=== PATIENT | male | born 1975 | race Caucasian/White ===

== ENCOUNTER 2021-05-23 13:25 | Inpatient (IN) | payer SELFPAY ==
[2021-05-23 14:04] LABS: Urine Blood 2+ (Negative); Urine Glucose Negative (Negative); Urine Protein 2+ (Negative); Urine Specific Gravity >=1.030 (1.005-1.030); Urine pH 5.5 (5.0-7.0)
[2021-05-23] MEDS ORDERED: NA CHLORIDE 0.9% 1,000 ML ONE (14:27)
[2021-05-23] MEDS ORDERED: CEFTRIAXONE 1000 MG/VIAL ONE (14:27)
[2021-05-23 14:51] LABS: Absolute Lymphocytes (CBC) 2.4 K/uL (0.7-4.9); Basophils % 0.5 % (0-1.3); Hematocrit 46.6 % (39.6-49.0); Lymphocytes % 27.8 % (15.3-44.8); MPV 7.8 fL (7.6-11.3); RBC Red Blood Cell Count 4.83 M/uL (4.33-5.43)
[2021-05-23 14:52] LABS: ALT/SGPT 80 U/L (12-78); AST/SGOT 34 U/L (15-37); Albumin 4.4 g/dL (3.4-5.0); Alkaline Phosphatase 62 U/L (45-117); BUN Blood Urea Nitrogen 14 mg/dL (7-18); Bicarbonate 23 mmol/L (21-32); Bilirubin Direct 0.2 mg/dL (0-0.2); Bilirubin Total 0.7 mg/dL (0.2-1.0); Glucose Level 92 mg/dL (74-106); Lipase 116 U/L (73-393); Magnesium 2.1 mg/dL (1.8-2.4); Sodium Level 140 mmol/L (136-145); Troponin (Emerg Dept Use Only) < 0.02 ng/mL (0.0-0.045)
[2021-05-23] MEDS ORDERED: MORPHINE 4 MG/ML SYR ONE ×2 (14:58→15:29)
[2021-05-23] MEDS ORDERED: ONDANSETRON 4 MG/2 ML VIAL ONE ×2 (14:58→16:31)
[2021-05-23 15:02] LABS: Protime INR 1.03
--- NOTE | 2021-05-23 15:02 | RAD REPORT ---
EXAM DESCRIPTION: RAD - Chest Single View - 05/23/2021 2:33 pm CLINICAL HISTORY: COUGH Chest pain. COMPARISON: No comparisons FINDINGS: Portable technique limits examination quality. The lungs are grossly clear. The heart is normal in size. No displaced fractures. IMPRESSION: No acute intrathoracic process suspected.
[2021-05-23 15:07] LABS: NT PRO-BNP < 5 pg/mL (<125)
--- NOTE | 2021-05-23 15:49 | RAD REPORT ---
EXAM DESCRIPTION: CT - Angio Aorta For Dissection - 05/23/2021 3:23 pm CLINICAL HISTORY: Chest pain radiating to the back. Chest pain;Dyspnea;PE;Dissection COMPARISON: No comparisons TECHNIQUE: CT angiography of the aorta was performed with MIPs. All CT scans are performed using dose optimization technique as appropriate and may include automated exposure control or mA/KV adjustment according to patient size. FINDINGS: A left aortic arch is present with normal branching pattern of the great vessels.No acute aortic finding is seen such as aneurysm, penetrating ulcer or dissection. The celiac axis, SMA, SINA and renal arteries are patent. No evidence of pulmonary embolism. The lungs are clear. The liver demonstrates no focal mass or biliary dilatation.The spleen, pancreas, adrenal glands and k idneys are within normal limits for arterial phase imaging.Cholecystectomy. No bowel obstruction, free fluid or abscess.Appendectomy. There is mild thickening of the colon seen particularly the rectosigmoid colon which may indicate colitis.No pathologic enlarged lymphadenopathy identified. Urinary bladder wall appears thickened with enhancement suggesting cystitis. No fracture or worrisome bone lesion seen. Small bilateral fat containing inguinal hernias. IMPRESSION: No acute aortic finding is demonstrated. Enhancement of the urinary bladder wall likely related to cystitis. Mild colitis pattern is possible particularly in the rectosigmoid colon.
--- NOTE | 2021-05-23 16:18 | ER ---
Nurse's Notes [facility] Name: Orlando Cevallos Age: 45 yrs Sex: Male : 1975 Arrival Date: 05/23/2021 Time: 13:26 Bed 14 Private MD: Diagnosis: Left sided colitis without complications;Acute cystitis;Acute cystitis with hematuria;Chest pain, unspecified;Chest pain on breathing;Retention of urine, unspecified-PVR 364 CC Presentation: 05/23 13:37 Chief complaint: Patient states: Passed kidney stone 2 days ago and reports burning jl7 with urination, urine is cloudy and foul odor, currently taking cephalexin for a week. Also reports chest tightness, radiates to the back since this morning, reports pain is worse with moving. Coronavirus screen: At this time, the client does not indicate any symptoms associated with coronavirus-19. Ebola Screen: No symptoms or risks identified at this time. Initial Sepsis Screen: Does the patient meet any 2 criteria? No. Patient's initial sepsis screen is negative. Does the patient have a suspected source of infection? No. Patient's initial sepsis screen is negative. Risk Assessment: Do you want to hurt yourself or someone else? Patient reports no desire to harm self or others. Onset of symptoms was May 21, 2021. 13:37 Method Of Arrival: Ambulatory [facility] 13:37 Acuity: STELLA 2 jl7 05/24 01:14 Note Called lab for results of Covid test. Lab stated hey did receive sample. Charge df1 nurse notified. Pt states he is not willing to test again. 01:16 Note Admitting provider and charge nurse in to speak with pt. Pt states he will leave df1 to avoid second covid test. Charge nurse stated pt can stay in ER and receive treatment. Admitting provider approved. Triage Assessment: 05/23 13:40 General: Appears in no apparent distress. uncomfortable, Behavior is calm, cooperative, jl7 appropriate for age. Pain: Complains of pain in chest Pain radiates to back Pain currently is 5 out of 10 on a pain scale. Pain began. Cardiovascular: Patient's skin is warm and dry. Historical: - Allergies: 13:40 Levaquin; jl7 - Home Meds: 13:40 aspirin 81 mg Oral tab [Active]; jl7 - PMHx: 13:40 None; jl7 - PSHx: 13:40 Appendectomy; Cholecystectomy; jl7 - Immunization history:: Adult Immunizations not up to date, Client reports having NOT received the Covid vaccine. - Social history:: Smoking status: Patient denies any tobacco usage or history of. - Family history:: not pertinent. Screenin:29 Abuse screen: Denies threats or abuse. Denies injuries from another. Nutritional es2 screening: No deficits noted. Tuberculosis screening: No symptoms or risk factors identified. Fall Risk Gait- Normal/Bed Rest/Wheelchair (0 pts). Assessment: 14:27 Reassessment: Patient and/or family updated on plan of care and expected duration. Pain es2 level reassessed. Patient is alert, oriented x 3, equal unlabored respirations, skin warm/dry/pink. General: Appears uncomfortable, well developed, well nourished, Behavior is calm, cooperative, appropriate for age. Pain: Complains of pain in chest Pain currently is 6 out of 10 on a pain scale. Pain: Complains of pain in chest that radiates to back. Pain. Neuro: Level of Consciousness is awake, alert, obeys commands, Oriented to person, place, time, situation, Appropriate for age Speech is normal. Cardiovascular: Capillary refill < 3 seconds Patient's skin is warm and dry. Respiratory: Airway is patent Respiratory effort is even, Respiratory pattern is regular. GI: No signs and/or symptoms were reported involving the gastrointestinal system. : Reports pain with urination. EENT: No signs and/or symptoms were reported regarding the EENT system. Derm: No signs and/or symptoms reported regarding the dermatologic system. Musculoskeletal: No signs and/or symptoms reported regarding the musculoskeletal system. 05/24 01:30 Reassessment: long discussion with pt about his Covid swab and the need to have one bb prior to admission pt refused Covid swab after the first one was misplaced. Pt agrees to complete treatment in the ED. Vital Signs: 05/23 13:37 BP 153 / 94; Pulse 88; Resp 17; Temp 98.7; Pulse Ox 98% on R/A; Weight 90.72 kg; Height jl7 5 ft. 10 in. (177.80 cm); Pain 6/10; 14:29 BP 124 / 88; Pulse 90; Resp 19; Pulse Ox 97% on R/A; es2 19:30 BP 130 / 78; Pulse 86; Resp 18; Pulse Ox 99% on R/A; Pain 0/10; df1 23:10 BP 132 / 80; Pulse 80; Resp 18; Pulse Ox 99% on R/A; df1 13:37 Body Mass Index 28.70 (90.72 kg, 177.80 cm) jl7 ED Course: 13:26 Patient arrived in ED. as 13:40 Triage completed. jl7 13:40 Arm band placed on right wrist. jl7 13:44 Chacha Briseno, KATYA is Primary Nurse. es2 13:46 Samy Mukherjee MD is Attending Physician. shena 14:18 Inserted saline lock: 20 gauge in right antecubital area, using aseptic technique. ld1 Blood collected. 14:29 Patient has correct armband on for positive identification. Call light in reach. es2 14:30 No provider procedures requiring assistance completed. Patient maintains SpO2 es2 saturation greater than 95% on room air. 14:31 manager monitoring on. Pulse ox on. NIBP on. es2 14:33 XRAY Chest (1 view) In Process Unspecified. EDMS 15:23 CT Aorta for Dissection In Process Unspecified. EDMS 15:36 Basic Metabolic Panel Sent. es2 16:15 Frankie Guthrie MD is Hospitalizing Provider. [facility] 22:48 COVID-19 : Document "Date of Symptom Onset" if Symptomatic. Sent. df1 Administered Medications: 14:17 Drug: Rocephin (cefTRIAXone) 1 grams Route: IV; Rate: per protocol; Site: right ld1 antecubital; 14:18 Drug: NS 0.9% 1000 ml Route: IV; Rate: 1 bolus; Site: right antecubital; ld1 14:43 Drug: morphine 4 mg Route: IVP; Site: right antecubital; es2 15:36 Follow up: Response: No adverse reaction es2 14:43 Drug: Zofran (Ondansetron) 4 mg Route: IVP; Site: right antecubital; es2 15:36 Follow up: Response: No adverse reaction es2 15:07 Drug: morphine 4 mg {Note: 1.} Route: IVP; Site: right antecubital; es2 15:36 Follow up: Response: No adverse reaction es2 16:22 Drug: Dilaudid (HYDROmorphone) 1 mg {Note: Rass 1.} Route: IVP; Site: right antecubital;es2 16:22 Drug: Zofran (Ondansetron) 4 mg Route: IVP; Site: right antecubital; es2 16:47 Drug: Aspirin Chewable Tablet 162 mg Route: PO; ap3 16:48 Drug: Flagyl (metroNIDAZOLE) 500 mg Volume: 100 ml; Route: IVPB; Rate: 200 ml/hr; ap3 Infused Over: 30 mins; Site: right antecubital; 16:48 Drug: Flomax (tamsulosin) 0.4 mg Route: PO; ap3 17:53 Drug: Meropenem 1 grams Route: IV; Rate: per protocol; Site: right antecubital; es2 Outcome: 16:17 Decision to Hospitalize by Provider. shena 05/25 11:01 Patient left the ED. tc5 Signatures: Dispatcher [employer] EDMS Samy Mukherjee MD MD cha Martinez, Amelia as Ballard, Brenda, RN RN bb Prasanna Morales RN RN jl7 Maria Guadalupe Vargas RN RN [id number] Nasreen Barber RN RN ld1 Ramon Rush RN RN ch5 Snow Jacques df1 Chacha Briseno RN RN es2 Fabiola May RN RN tc5 Corrections: (The following items were deleted from the chart) 05/24 10:41 10:34 BP 132 / 77; Pulse 73bpm; Resp 17bpm; Pulse Ox 98% RA; Pain 0/10; ch5 ch5
--- NOTE | 2021-05-23 16:18 | EDPHYS ---
Physician Documentation [facility] Name: Orlando Cevallos Age: 45 yrs Sex: Male : 1975 Arrival Date: 05/23/2021 Time: 13:26 Bed 14 Private MD: ED Physician Samy Mukherjee HPI: 05/23 14:29 This 45 yrs old Male presents to ER via Ambulatory with complaints of Urinary [facility] Problem - blood/retention, Chest Pain, Shortness Of Breath, Possible Kidney Stone. 14:29 The patient or guardian reports chest pain that is located primarily in the anterior [facility] chest wall, bilaterally. Onset: 2 day(s) ago. The pain radiates to back. Associated signs and symptoms: Pertinent positives: shortness of breath. The chest pain is described as aching, a pressure. Duration: The patient or guardian reports multiple episodes, that wax and wane. Modifying factors: The symptoms are alleviated by remaining still, the symptoms are aggravated by breathing, movement. Severity of pain: At its worst the pain was mild in the emergency department the pain is unchanged. The patient has not experienced similar symptoms in the past. Historical: - Allergies: 13:40 Levaquin; jl7 - Home Meds: 13:40 aspirin 81 mg Oral tab [Active]; jl7 - PMHx: 13:40 None; jl7 - PSHx: 13:40 Appendectomy; Cholecystectomy; jl7 - Immunization history:: Adult Immunizations not up to date, Client reports having NOT received the Covid vaccine. - Social history:: Smoking status: Patient denies any tobacco usage or history of. - Family history:: not pertinent. ROS: 14:29 Constitutional: Negative for fever, chills, and weight loss, Eyes: Negative for injury, shena pain, redness, and discharge, ENT: Negative for injury, pain, and discharge, Neck: Negative for injury, pain, and swelling, Respiratory: Negative for shortness of breath, cough, wheezing, and pleuritic chest pain, Abdomen/GI: Negative for abdominal pain, nausea, vomiting, diarrhea, and constipation, : Negative for injury, bleeding, discharge, and swelling, MS/Extremity: Negative for injury and deformity, Skin: Negative for injury, rash, and discoloration, Neuro: Negative for headache, weakness, numbness, tingling, and seizure, Psych: Negative for depression, anxiety, suicide ideation, homicidal ideation, and hallucinations, Allergy/Immunology: Negative for hives, rash, and allergies, Endocrine: Negative for neck swelling, polydipsia, polyuria, polyphagia, and marked weight changes, Hematologic/Lymphatic: Negative for swollen nodes, abnormal bleeding, and unusual bruising. 14:29 Cardiovascular: Positive for chest pain. 14:29 Back: Positive for flank pain, bilaterally. Exam: 14:29 Constitutional: This is a well developed, well nourished patient who is awake, alert, shena and in no acute distress. Head/Face: Normocephalic, atraumatic. Eyes: Pupils equal round and reactive to light, extra-ocular motions intact. Lids and lashes normal. Conjunctiva and sclera are non-icteric and not injected. Cornea within normal limits. Periorbital areas with no swelling, redness, or edema. ENT: Nares patent. No nasal discharge, no septal abnormalities noted. Tympanic membranes are normal and external auditory canals are clear. Oropharynx with no redness, swelling, or masses, exudates, or evidence of obstruction, uvula midline. Mucous membranes moist. Neck: Trachea midline, no thyromegaly or masses palpated, and no cervical lymphadenopathy. Supple, full range of motion without nuchal rigidity, or vertebral point tenderness. No Meningismus. Chest/axilla: Normal chest wall appearance and motion. Nontender with no deformity. No lesions are appreciated. Cardiovascular: Regular rate and rhythm with a normal S1 and S2. No gallops, murmurs, or rubs. Normal PMI, no JVD. No pulse deficits. Respiratory: Lungs have equal breath sounds bilaterally, clear to auscultation and percussion. No rales, rhonchi or wheezes noted. No increased work of breathing, no retractions or nasal flaring. Back: No spinal tenderness. No costovertebral tenderness. Full range of motion. Male : Normal genitalia with no discharge or lesions. Skin: Warm, dry with normal turgor. Normal color with no rashes, no lesions, and no evidence of cellulitis. MS/ Extremity: Pulses equal, no cyanosis. Neurovascular intact. Full, normal range of motion. Neuro: Awake and alert, GCS 15, oriented to person, place, time, and situation. Cranial nerves II-XII grossly intact. Motor strength 5/5 in all extremities. Sensory grossly intact. Cerebellar exam normal. Normal gait. Psych: Awake, alert, with orientation to person, place and time. Behavior, mood, and affect are within normal limits. 14:29 ECG was reviewed by the Attending Physician. 14:29 Abdomen/GI: Inspection: abdomen appears normal, Bowel sounds: normal, Palpation: mild abdominal tenderness, in the right lower quadrant and left lower quadrant, Liver: no appreciated palpable abnormalities, Hernia: not appreciated. Vital Signs: 13:37 BP 153 / 94; Pulse 88; Resp 17; Temp 98.7; Pulse Ox 98% on R/A; Weight 90.72 kg; Height jl7 5 ft. 10 in. (177.80 cm); Pain 6/10; 14:29 BP 124 / 88; Pulse 90; Resp 19; Pulse Ox 97% on R/A; es2 19:30 BP 130 / 78; Pulse 86; Resp 18; Pulse Ox 99% on R/A; Pain 0/10; df1 23:10 BP 132 / 80; Pulse 80; Resp 18; Pulse Ox 99% on R/A; df1 13:37 Body Mass Index 28.70 (90.72 kg, 177.80 cm) jl7 MDM: 13:47 Patient medically screened. shena 14:33 Differential diagnosis: abnormal EKG, acute myocardial infarction, acute pericarditis, shena anxiety, chest wall pain, esophagitis, pulmonary embolus, stable angina, unstable angina. HEART Score: History: Slightly Suspicious (0), ECG: Normal (0), Age: > 45 and < 65 years (1), Risk Factors: No Risk Factors Known (0), Troponin: < or = 1 x Normal Limit (0), Total Score = 1. The patient was given aspirin in the Emergency Department. The patient's deep vein thrombosis risk score was calculated as follows: Total Score: 0. This patient was found to be at low risk for a deep vein thrombosis by using the Well's assessment criteria. The patient's pulmonary embolism risk score was calculated as follows: Total Score: 0-2 points. This patient was found to be at low risk for a pulmonary embolism by using the Well's assessment criteria. DERECK Risk Score: TOTAL SCORE = 0. Data reviewed: vital signs, nurses notes, lab test result(s), EKG, radiologic studies, CT scan, plain films. Data interpreted: court recording monitor: rate is 90 beats/min, rhythm is regular, Pulse oximetry: on room air is 97 %. Test interpretation: by ED physician or midlevel provider: ECG, plain radiologic studies. Counseling: I had a detailed discussion with the patient and/or guardian regarding: the historical points, exam findings, and any diagnostic results supporting the discharge/admit diagnosis, the presence of at least one elevated blood pressure reading (>120/80) during this emergency department visit, lab results, radiology results. 05/23 13:51 Order name: Basic Metabolic Panel [facility] 05/23 13:51 Order name: CBC with Diff; Complete Time: 15: [facility] 05/23 13:51 Order name: LFT's; Complete Time: 15: [facility] 05/23 13:51 Order name: Magnesium; Complete Time: 15:09 [facility] 05/23 13:51 Order name: NT PRO-BNP; Complete Time: 15:09 [facility] 05/23 13:51 Order name: PT-INR; Complete Time: 15:09 [facility] 05/23 13:51 Order name: Troponin (emerg Dept Use Only); Complete Time: 15:09 [facility] 05/23 13:51 Order name: Lipase; Complete Time: 15:09 [facility] 05/23 13:51 Order name: Urine Culture [facility] 05/23 13:51 Order name: Basic Metabolic Panel; Complete Time: 15:09 [facility] 05/23 14:03 Order name: Urine Dipstick-Ancillary; Complete Time: 14:26 [facility] 05/23 21:34 Order name: COVID-19 : Document "Date of Symptom Onset" if Symptomatic. wg 05/24 06:25 Order name: CBC with Automated Diff [facility] 05/24 06:44 Order name: Comprehensive Metabolic Panel [facility] 05/23 13:51 Order name: XRAY Chest (1 view); Complete Time: 15:09 [facility] 05/23 14:26 Order name: CT Aorta for Dissection; Complete Time: 16:09 shena 05/24 06:44 Order name: Phosphorus [facility] 05/24 06:44 Order name: Lipid Profile [facility] 05/24 06:44 Order name: T4 Free [facility] 05/24 06:44 Order name: Magnesium [facility] 05/24 06:44 Order name: Thyroid Stimulating Hormone [facility] 05/25 05:17 Order name: CBC with Automated Diff [facility] 05/25 05:39 Order name: Comprehensive Metabolic Panel [facility] 05/25 05:39 Order name: Magnesium [facility] 05/25 06:34 Order name: Phosphorus [facility] 05/23 13:51 Order name: EKG; Complete Time: 13:51 [facility] 05/23 13:51 Order name: Cardiac monitoring; Complete Time: 14:23 [facility] 05/23 13:51 Order name: EKG - Nurse/Tech; Complete Time: 14:18 [facility] 05/23 13:51 Order name: IV Saline Lock; Complete Time: 14:18 [facility] 05/23 13:51 Order name: Labs collected and sent; Complete Time: 14:18 [facility] 05/23 13:51 Order name: O2 Per Protocol; Complete Time: 14:05 [facility] 05/23 13:51 Order name: O2 Sat Monitoring; Complete Time: 14:05 [facility] 05/23 13:51 Order name: Urine Dipstick-Ancillary (obtain specimen); Complete Time: 14:05 [facility] 05/23 16:15 Order name: Bladder Scanner: pvr please; Complete Time: 17:37 [facility] EC:29 Rate is 109 beats/min. QRS [place] is Normal. AL interval is normal. QRS interval is shena normal. QT interval is normal. No Q waves. T waves are Normal. No ST changes noted. Clinical impression: NSR w/ Non-specific ST/T Changes and No evidence of ischemia. Interpreted by me. Reviewed by me. Administered Medications: 14:17 Drug: Rocephin (cefTRIAXone) 1 grams Route: IV; Rate: per protocol; Site: right ld1 antecubital; 14:18 Drug: NS 0.9% 1000 ml Route: IV; Rate: 1 bolus; Site: right antecubital; ld1 14:43 Drug: morphine 4 mg Route: IVP; Site: right antecubital; es2 15:36 Follow up: Response: No adverse reaction es2 14:43 Drug: Zofran (Ondansetron) 4 mg Route: IVP; Site: right antecubital; es2 15:36 Follow up: Response: No adverse reaction es2 15:07 Drug: morphine 4 mg {Note: 1.} Route: IVP; Site: right antecubital; es2 15:36 Follow up: Response: No adverse reaction es2 16:22 Drug: Dilaudid (HYDROmorphone) 1 mg {Note: Rass 1.} Route: IVP; Site: right antecubital;es2 16:22 Drug: Zofran (Ondansetron) 4 mg Route: IVP; Site: right antecubital; es2 16:47 Drug: Aspirin Chewable Tablet 162 mg Route: PO; ap3 16:48 Drug: Flagyl (metroNIDAZOLE) 500 mg Volume: 100 ml; Route: IVPB; Rate: 200 ml/hr; ap3 Infused Over: 30 mins; Site: right antecubital; 16:48 Drug: Flomax (tamsulosin) 0.4 mg Route: PO; ap3 17:53 Drug: Meropenem 1 grams Route: IV; Rate: per protocol; Site: right antecubital; es2 Disposition Summary: 05/23/21 16:17 Hospitalization Ordered Hospitalization Status: Inpatient Admission shena Provider: Frankie Guthrie cha Condition: Fair shena Problem: new shena Symptoms: have improved shena Bed/Room Type: Standard [facility] Location: [facility] ER HOLD(05/24/21 01:55) bb Room Assignment: ERHOLD-(05/24/21 01:55) bb Diagnosis - Left sided colitis without complications shena - Acute cystitis shena - Acute cystitis with hematuria shena - Chest pain, unspecified shena - Chest pain on breathing shena - Retention of urine, unspecified - PVR 364 CC shena Forms: - Medication Reconciliation Form shena - SBAR form shena Signatures: Dispatcher [employer] [facility] Samy Mukherjee MD MD cha Ballard, Brenda RN RN Prasanna Soriano RN RN [email or web address] Maria Guadalupe Vargas RN RN ap3 Nasreen Barber RN RN [email or web address] Chacha Briseno RN RN es2 Corrections: (The following items were deleted from the chart) 14:34 13:51 Angio Aorta For Dissection+CT.RAD.BRZ ordered. [facility] 05/24 01:55 05/23 16:17 Telemetry/MedSurg (Inpatient) shena bernal 05/24 01:55 05/23 16:17 shena bb
[2021-05-23] MEDS ORDERED: HYDROMORPHONE HCL 1 MG/ML INJ ONE (16:31)
[2021-05-23] MEDS ORDERED: Meropenem 1000 MG/VIAL IV ONE (16:54)
[2021-05-23] MEDS ORDERED: NA CHLORIDE 0.9% 100 ML ONE (16:54)
[2021-05-23] MEDS ORDERED: TAMSULOSIN 0.4 MG SR CAP ONE (16:54)
[2021-05-23] MEDS ORDERED: ASPIRIN EC 81 MG TAB PO ONE (16:54)
[2021-05-23] MEDS ORDERED: METRONIDAZOLE 500mg IVPB 500 MG/100 ML BAG IV ONE (16:55)
--- NOTE | 2021-05-23 19:50 | P.HP ---
Certification for Inpatient Patient admitted to: Observation With expected LOS: <2 Midnights Patient will require the following post-hospital care: None Practitioner: I am a practitioner with admitting privileges, knowledge of patient current condition, hospital course, and medical plan of care. Services: Services provided to patient in accordance with Admission requirements found in Title 42 Section 412.3 of the Code of Federal Regulations <Raman Amos Ghulam - Last Filed: 05/23/21 19:42> Patient History Date of Service: 05/23/21 Reason for admission: cystitis, colitis History of Present Illness: Mr. Cevallos is a 45 yo M who presents with worsening flank pain and urinary retention. In October, he passed a kidney stone and was also diagnosed with a UTI that he was treated for at that time. It returned, so he followed up with and was cleared by urology. He has continued to have dysuria, urgency, hematuria, bloating, and flank pain. He denies fever, frequency. For the past four days, he has been in constant pain. He is scheduled to see Dr. Stewart tomorrow but was told to go to the ED if symptoms worsened. This morning he was unable to urinate. Upon arrival, he had 900cc on bladder scan. After flomax and pain medication, he was able to urinate. He reports no issues with constipation, but has been having looser stools. He drinks 2-3 44oz bottles of gatorade per day. CT Dissection IMPRESSION: No acute aortic finding is demonstrated. Enhancement of the urinary bladder wall likely related to cystitis. Mild colitis pattern is possible particularly in the rectosigmoid colon. - Past Medical/Surgical History Past Medical History: Patient denies medical history -: appy -: saba - Family History Family History: Reviewed- Non-Contributory - Social History Smoking Status: Never smoker Alcohol use: Yes CD- Drugs: No Caffeine use: Yes Place of Residence: Home <Raman Amos - Last Filed: 05/23/21 19:42> Date of Service: 05/23/21 <Frankie Guthrie - Last Filed: 05/24/21 07:08> Review of Systems 10-point ROS is otherwise unremarkable Gastrointestinal: Abdominal Pain, Diarrhea Genitourinary: Dysuria, Urgency, Hematuria, Retention <Raman Amos - Last Filed: 05/23/21 19:42> Physical Examination - Physical Exam General: Alert, In no apparent distress HEENT: Atraumatic, PERRLA, Mucous membr. moist/pink, EOMI, Sclerae nonicteric Neck: Supple, 2+ carotid pulse no bruit, No LAD, Without JVD or thyroid abnormality Respiratory: Clear to auscultation bilaterally, Normal air movement Cardiovascular: Regular rate/rhythm, Normal S1 S2 Gastrointestinal: Normal bowel sounds, No tenderness Musculoskeletal: No tenderness Integumentary: No rashes Neurological: Normal gait, Normal speech, Normal strength at 5/5 x4 extr, Normal tone, Normal affect Lymphatics: No axilla or inguinal lymphadenopathy - Studies Laboratory Data (last 24 hrs) 05/23/21 14:16: PT 11.8, INR 1.03 05/23/21 14:16: WBC 8.60, Hgb 16.1, Hct 46.6, Plt Count 256 05/23/21 14:16: Sodium 140, Potassium 4.0, BUN 14, Creatinine 1.00, Glucose 92, Magnesium 2.1, Total Bilirubin 0.7, AST 34, ALT 80 H, Alkaline Phosphatase 62, Lipase 116 <Raman Amos - Last Filed: 05/23/21 19:42> - Studies Laboratory Data (last 24 hrs) 05/23/21 14:16: PT 11.8, INR 1.03 05/23/21 14:16: WBC 8.60, Hgb 16.1, Hct 46.6, Plt Count 256 05/23/21 14:16: Sodium 140, Potassium 4.0, BUN 14, Creatinine 1.00, Glucose 92, Magnesium 2.1, Total Bilirubin 0.7, AST 34, ALT 80 H, Alkaline Phosphatase 62, Lipase 116 <Frankie Guthrie - Last Filed: 05/24/21 07:08> Assessment and Plan - Problems (Diagnosis) (1) Colitis Current Visit: Yes Status: Acute (2) Cystitis Current Visit: Yes Status: Acute - Plan continue IV antibiotics continue antiemetics and pain management continue flomax urine culture and blood cultures pending DVT ppx Discharge Plan: Home Plan to discharge in: 24 Hours - Advance Directives Does patient have a Living Will: No Does patient have a Durable POA for Healthcare: No - Code Status/Comfort Care Code Status Assessed: Yes (full code ) Critical Care: No Time Spent Managing Pts Care (In Minutes): 70 <Raman Amos - Last Filed: 05/23/21 19:42> Date of Service: 05/23/21 Subjective: Agree with plan of care as mentioned above. Patient is clinically doing well. Continue with Flomax and antibiotic therapy. Vitals: Reviewed Physical exam: Awake and alert Cardiovascular: Regular rate and rhythm Lungs: Clear bilaterally Abdomen: Soft, nontender and nondistended Neuro: No focal deficits Assessment: 1. Urinary retention 2. WINDY 3. Cystitis 4. Colitis Plan: 1. Continue with IV hydration 2. Continue with IV antibiotics 3. Continue with pain control 4. Soft diet 5. Outpatient Urology follow-up 6. Monitor labs closely 7. GI and DVT prophylaxis <Frankie Guthrie - Last Filed: 05/24/21 07:08>
--- NOTE | 2021-05-24 01:01 | P.DS ---
Admission Date: 05/23/21 Discharge Date: 05/24/21 Reason for Admission: cystitis, colitis - Problems (1) Colitis Current Visit: Yes Status: Acute (2) Cystitis Current Visit: Yes Status: Acute Brief History of Present Illness: Mr. Cevallos is a 45 yo M who presents with worsening flank pain and urinary retention. In October, he passed a kidney stone and was also diagnosed with a UTI that he was treated for at that time. It returned, so he followed up with and was cleared by urology. He has continued to have dysuria, urgency, hematuria, bloating, and flank pain. He denies fever, frequency. For the past four days, he has been in constant pain. He is scheduled to see Dr. Stewart tomorrow but was told to go to the ED if symptoms worsened. This morning he was unable to urinate. Upon arrival, he had 900cc on bladder scan. After flomax and pain medication, he was able to urinate. He reports no issues with constipation, but has been having looser stools. He drinks 2-3 44oz bottles of gatorade per day. CT Dissection IMPRESSION: No acute aortic finding is demonstrated. Enhancement of the urinary bladder wall likely related to cystitis. Mild colitis pattern is possible particularly in the rectosigmoid colon. Hospital Course: Mr. Cevallos received flomax and IV antibiotics in the ED. He is able to void without pain. He has a followup appointment scheduled with Dr. Stewart tomorrow at 8AM. He will continue to take oral antibiotics at home. Urine culture results will be available to urology. <Raman Amos - Last Filed: 05/24/21 00:58> Admission Date: 05/23/21 Discharge Date: 05/24/21 <Frankie Guthrie - Last Filed: 05/24/21 07:09> Disposition: ROUTINE DISCHARGE Discharge Condition: GOOD Laboratory Data at Discharge: WBC 8.60 K/uL (4.3-10.9) 05/23/21 14:16 Hgb 16.1 g/dL (13.6-17.9) 05/23/21 14:16 Hct 46.6 % (39.6-49.0) 05/23/21 14:16 Plt Count 256 K/uL (152-406) 05/23/21 14:16 PT 11.8 SECONDS (9.5-12.5) 05/23/21 14:16 INR 1.03 05/23/21 14:16 Sodium 140 mmol/L (136-145) 05/23/21 14:16 Potassium 4.0 mmol/L (3.5-5.1) 05/23/21 14:16 BUN 14 mg/dL (7-18) 05/23/21 14:16 Creatinine 1.00 mg/dL (0.55-1.3) 05/23/21 14:16 Glucose 92 mg/dL (74-106) 05/23/21 14:16 Magnesium 2.1 mg/dL (1.8-2.4) 05/23/21 14:16 Total Bilirubin 0.7 mg/dL (0.2-1.0) 05/23/21 14:16 AST 34 U/L (15-37) 05/23/21 14:16 ALT 80 U/L (12-78) H 05/23/21 14:16 Alkaline Phosphatase 62 U/L (45-117) 05/23/21 14:16 Lipase 116 U/L (73-393) 05/23/21 14:16 <Raman Amos S - Last Filed: 05/24/21 00:58> Vital Signs/Physical Exam: Temp Pulse Resp BP Pulse Ox 98.4 F 81 18 121/73 98 05/24/21 01:41 05/24/21 05:49 05/24/21 05:49 05/24/21 05:49 05/24/21 05:49 Laboratory Data at Discharge: WBC 6.70 K/uL (4.3-10.9) D 05/24/21 06:00 Hgb 13.8 g/dL (13.6-17.9) 05/24/21 06:00 Hct 39.7 % (39.6-49.0) 05/24/21 06:00 Plt Count 224 K/uL (152-406) 05/24/21 06:00 PT 11.8 SECONDS (9.5-12.5) 05/23/21 14:16 INR 1.03 05/23/21 14:16 Sodium 143 mmol/L (136-145) 05/24/21 06:00 Potassium 4.1 mmol/L (3.5-5.1) 05/24/21 06:00 BUN 13 mg/dL (7-18) 05/24/21 06:00 Creatinine 0.87 mg/dL (0.55-1.3) 05/24/21 06:00 Glucose 103 mg/dL (74-106) 05/24/21 06:00 Phosphorus 3.9 mg/dL (2.5-4.9) 05/24/21 06:00 Magnesium 2.3 mg/dL (1.8-2.4) 05/24/21 06:00 Total Bilirubin 0.4 mg/dL (0.2-1.0) 05/24/21 06:00 AST 29 U/L (15-37) 05/24/21 06:00 ALT 73 U/L (12-78) 05/24/21 06:00 Alkaline Phosphatase 58 U/L (45-117) 05/24/21 06:00 Triglycerides 91 mg/dL (<150) 05/24/21 06:00 Cholesterol 114 mg/dL (<200) 05/24/21 06:00 HDL Cholesterol 32 mg/dL (40-60) L 05/24/21 06:00 Cholesterol/HDL Ratio 3.56 05/24/21 06:00 Lipase 116 U/L (73-393) 05/23/21 14:16 <Frankie Guthrie - Last Filed: 05/24/21 07:09> Diet: Regular Activity: Ad diana <Raman Amos - Last Filed: 05/24/21 00:58> <Frankie Guthrie - Last Filed: 05/24/21 07:09> Physician Discharge Instructions: Follow up with urology tomorrow at 8AM continue to take oral antibiotics return to the ED if pain worsens or unable to void Followup: NONE,NONE [Primary Care Provider] - Juan Manuel Stewart [ACTIVE - CAN ADMIT] - Date of Service: 05/24/21 Chart is been reviewed. Agree with plan of care as mentioned above. Patient is stable for discharge. Outpatient follow with Urology and GI. <Frankie Guthrie - Last Filed: 05/24/21 07:09>
[2021-05-24] MEDS ORDERED: NITROGLYCERIN 0.4 MG/TAB SL PRN (01:21)
[2021-05-24] MEDS ORDERED: ATORVASTATIN 40 MG TAB PO SCH (01:21)
[2021-05-24] MEDS: METRONIDAZOLE 500mg IVPB 500 MG/100 ML BAG IV SCH ×3 (01:21→17:15)
[2021-05-24] MEDS ORDERED: ONDANSETRON 4 MG/2 ML VIAL IV PRN (01:21)
[2021-05-24] MEDS ORDERED: MORPHINE 2 MG/ML SYR IV PRN (01:21)
[2021-05-24] MEDS ORDERED: ACETAMINOPHEN 500 MG TAB PO PRN (01:21)
[2021-05-24] MEDS ORDERED: METRONIDAZOLE 500mg IVPB 500 MG/100 ML BAG IV ONE ×3 (01:54→18:04)
[2021-05-24] MEDS ORDERED: CEFEPIME 2 GM VIAL IV SCH ×2 (02:00→14:00)
[2021-05-24] MEDS ORDERED: CEFEPIME 1 GM/VIAL ONE ×3 (03:05→14:01)
[2021-05-24] MEDS ORDERED: D5W 100 ML IV ONE (03:12)
[2021-05-24] MEDS ORDERED: ATORVASTATIN 20 MG TAB ONE ×2 (04:36→20:34)
[2021-05-24 04:38] VITALS: BMI 27.1
[2021-05-24 06:19] LABS: Absolute Lymphocytes (CBC) 2.6 K/uL (0.7-4.9); Basophils % 0.7 % (0-1.3); Hematocrit 39.7 % (39.6-49.0); Lymphocytes % 38.2 % (15.3-44.8); MPV 7.5 fL (7.6-11.3); RBC Red Blood Cell Count 4.14 M/uL (4.33-5.43)
[2021-05-24 06:42] LABS: ALT/SGPT 73 U/L (12-78); AST/SGOT 29 U/L (15-37); Albumin 3.6 g/dL (3.4-5.0); Alkaline Phosphatase 58 U/L (45-117); BUN Blood Urea Nitrogen 13 mg/dL (7-18); Bicarbonate 28 mmol/L (21-32); Bilirubin Total 0.4 mg/dL (0.2-1.0); Glucose Level 103 mg/dL (74-106); HDL Cholesterol 32 mg/dL (40-60); LDL Cholesterol, Calculated 64 (<130); Magnesium 2.3 mg/dL (1.8-2.4); Phosphorus 3.9 mg/dL (2.5-4.9); Potassium 4.1 mmol/L (3.5-5.1); Protein, Total 6.6 g/dL (6.4-8.2); Sodium Level 143 mmol/L (136-145)
[2021-05-24] MEDS ORDERED: TAMSULOSIN 0.4 MG SR CAP ONE (08:21)
[2021-05-24] MEDS ORDERED: AMOX/K CLAV 875 MG TAB PO SCH (09:00)
[2021-05-24] MEDS ORDERED: INFLUENZA VACCINE (for 6+ mo) 0.5 ML DOSE IMVAC ONE (09:00)
[2021-05-24] MEDS: TAMSULOSIN 0.4 MG SR CAP PO SCH (09:50)
[2021-05-24] MEDS ORDERED: ACETAMINOPHEN 500 MG TAB ONE (12:35)
[2021-05-24] MEDS ORDERED: ONDANSETRON 4 MG/2 ML VIAL ONE (12:36)
[2021-05-24] MEDS ORDERED: MORPHINE 4 MG/ML SYR ONE (12:36)
[2021-05-24] MEDS: CEFEPIME 2 GM in NA CHLORIDE 0.9% 100 ML IV SCH (14:10)
--- NOTE | 2021-05-24 16:38 | P.PN ---
Subjective Date of Service: 05/24/21 Patient states that he has multi-drug resistant urinary tract infections. I reviewed the culture from the past and he has had Pseudomonas aeruginosa at x2. He most likely has a repeat UTI it from Pseudomonas. For a male to have repetitive infections as such a young age most likely there some anatomical is sues or related to nephrolithiasis. Will send stool off for cytology if he passes a stone. Review of Systems 10-point ROS is otherwise unremarkable Physical Examination - Vital Signs Temperature: 98.4 F Blood Pressure: 126/83 Pulse: 177 Respirations: 18 Pulse Ox (%): 98 - Physical Exam General: Alert, In no apparent distress, Oriented x3 Respiratory: Clear to auscultation bilaterally, Normal air movement Cardiovascular: Regular rate/rhythm, Normal S1 S2, No murmurs Gastrointestinal: Normal bowel sounds, Soft and benign, Non-distended, No rebound, No guarding, Other (Suprapubic tenderness), Tenderness Musculoskeletal: No clubbing, No swelling, No tenderness Neurological: Normal speech, Normal tone, Normal affect Lymphatics: No axilla or inguinal lymphadenopathy - Studies Medications List Reviewed: Yes Assessment & Plan - Problems (Diagnosis) (1) 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 Continue with IV hydration 2. Continue with IV antibiotics 3. Continue with pain control 4. Gentle hydration 5. Urology consultation; 6. Serial H&H, and we will monitor CBC, BMP, LFTs and lipase along with electrolytes. 7. GI and DVT prophylaxis Discharge Plan: Home Plan to discharge in: Greater than 2 days - Advance Directives Does patient have a Living Will: No Does patient have a Durable POA for Healthcare: No - Code Status/Comfort Care Code Status Assessed: Yes Code Status: Full Code Critical Care: No Time Spent Managing PTS Care (In Minutes): 40
[2021-05-25] MEDS: METRONIDAZOLE 500mg IVPB 500 MG/100 ML BAG IV SCH ×2 (00:35→09:00)
[2021-05-25] MEDS ORDERED: MELATONIN 5 MG TABLET PO PRN (00:39)
[2021-05-25] MEDS ORDERED: METRONIDAZOLE 500mg IVPB 500 MG/100 ML BAG IV ONE ×2 (00:54→08:05)
[2021-05-25] MEDS ORDERED: MELATONIN 5 MG TABLET PO ONE (01:16)
[2021-05-25] MEDS: CEFEPIME 2 GM in NA CHLORIDE 0.9% 100 ML IV SCH (01:49)
[2021-05-25] MEDS ORDERED: NA CHLORIDE 0.9% 100 ML ONE (02:00)
[2021-05-25] MEDS ORDERED: CEFEPIME 1 GM/VIAL ONE (02:00)
[2021-05-25 05:05] LABS: Absolute Lymphocytes (CBC) 2.8 K/uL (0.7-4.9); Basophils % 0.5 % (0-1.3); Hematocrit 40.9 % (39.6-49.0); Lymphocytes % 39.4 % (15.3-44.8); MPV 7.3 fL (7.6-11.3); RBC Red Blood Cell Count 4.21 M/uL (4.33-5.43)
[2021-05-25 05:38] LABS: Albumin 3.5 g/dL (3.4-5.0); Bilirubin Total 0.5 mg/dL (0.2-1.0); Magnesium 2.3 mg/dL (1.8-2.4); Potassium 4.3 mmol/L (3.5-5.1); Protein, Total 6.5 g/dL (6.4-8.2)
[2021-05-25 06:33] LABS: Phosphorus 4.2 mg/dL (2.5-4.9)
[2021-05-25] MEDS ORDERED: TAMSULOSIN 0.4 MG SR CAP ONE (08:05)
[2021-05-25] MEDS: TAMSULOSIN 0.4 MG SR CAP PO SCH (09:00)
[2021-05-25 09:25] VITALS: BP 110/97; TEMP 97.9
[2021-05-25 09:28] VITALS: O2SAT 97
--- NOTE | 2021-06-04 16:44 | P.DS ---
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 Cevallos is a 45 yo M who presents with worsening flank pain and urinary retention. In October, he passed a kidney stone and was also diagnosed with a UTI that he was treated for at that time. It returned, so he followed up with and was cleared by urology. He has continued to have dysuria, urgency, hematuria, bloating, and flank pain. He denies fever, frequency. For the past four days, he has been in constant pain. He is scheduled to see Dr. Stewart tomorrow but was told to go to the ED if symptoms worsened. This morning he was unable to urinate. Upon arrival, he had 900cc on bladder scan. After flomax and pain medication, he was able to urinate. He reports no issues with constipation, but has been having looser stools. He drinks 2-3 44oz bottles of gatorade per day. Hospital Course: Patient will continue on antibiotic therapy. Patient will continue on Cefdinir & Flagyl. Patient is doing well and is stable for discharge home. Vital Signs/Physical Exam: Temp Pulse Resp BP Pulse Ox 97.9 F 72 16 110/97 H 100 05/25/21 08:00 05/25/21 08:00 05/25/21 08:00 05/25/21 08:00 05/25/21 08:00 General: Alert, In no apparent distress, Oriented x3 Laboratory Data at Discharge: WBC 7.20 K/uL (4.3-10.9) 05/25/21 04:49 Hgb 14.1 g/dL (13.6-17.9) 05/25/21 04:49 Hct 40.9 % (39.6-49.0) 05/25/21 04:49 Plt Count 215 K/uL (152-406) 05/25/21 04:49 PT 11.8 SECONDS (9.5-12.5) 05/23/21 14:16 INR 1.03 05/23/21 14:16 Sodium 145 mmol/L (136-145) 05/25/21 04:49 Potassium 4.3 mmol/L (3.5-5.1) 05/25/21 04:49 BUN 15 mg/dL (7-18) 05/25/21 04:49 Creatinine 1.03 mg/dL (0.55-1.3) 05/25/21 04:49 Glucose 101 mg/dL (74-106) 05/25/21 04:49 Phosphorus 4.2 mg/dL (2.5-4.9) 05/25/21 04:49 Magnesium 2.3 mg/dL (1.8-2.4) 05/25/21 04:49 Total Bilirubin 0.5 mg/dL (0.2-1.0) 05/25/21 04:49 AST 26 U/L (15-37) 05/25/21 04:49 ALT 72 U/L (12-78) 05/25/21 04:49 Alkaline Phosphatase 57 U/L (45-117) 05/25/21 04:49 Triglycerides 91 mg/dL (<150) 05/24/21 06:00 Cholesterol 114 mg/dL (<200) 05/24/21 06:00 HDL Cholesterol 32 mg/dL (40-60) L 05/24/21 06:00 Cholesterol/HDL Ratio 3.56 05/24/21 06:00 Lipase 116 U/L (73-393) 05/23/21 14:16 Home Medications: Cefdinir [Omnicef] 300 mg PO Q12H #20 capsule 05/25/21 Melatonin 5 mg PO BEDTIME PRN PRN #30 tablet 05/25/21 Tamsulosin [Flomax*] 0.4 mg PO BEDTIME #30 cap 05/25/21 metroNIDAZOLE [Flagyl] 500 mg PO Q8H #30 tablet 05/25/21 New Medications: metroNIDAZOLE [Flagyl] 500 mg PO Q8H #30 tablet Tamsulosin [Flomax*] 0.4 mg PO BEDTIME #30 cap Melatonin 5 mg PO BEDTIME PRN PRN #30 tablet PRN Reason: Insomnia Cefdinir [Omnicef] 300 mg PO Q12H #20 capsule Physician Discharge Instructions: Follow up with urology tomorrow at 8AM continue to take oral antibiotics return to the ED if pain worsens or unable to void Diet: Regular Activity: Ad diana Followup: NONE,NONE [Primary Care Provider] - Juan Manuel Stewart [ACTIVE - CAN ADMIT] - Time spent managing pt's care (in minutes): 35
== END 2021-05-25 09:00 | disposition home or self-care (01) | DRG 690 ==
LOC: ER 13:25 → ERHOLD 18:45 → OBSVTOIN 18:45
PROVIDERS: ADMIT Hospitalist; ATTEND Hospitalist
DX: N30.00 Acute cystitis without hematuria (principal); N17.9 Acute kidney failure, unspecified; Z16.24 Resistance to multiple antibiotics; K52.9 Noninfective gastroenteritis and colitis, unspecified; B96.5 Pseudomonas (aeruginosa) (mallei) (pseudomallei) as the cause of diseases classified elsewhere
CPT/HCPCS: 36415; 71045; 71275; 74175; 80048; 80053; 80061; 80076; 81003; 83690; 83735; 83880; 84100; 84439; 84443; 84484; 85025; 85610; 87077; 87086; 87088; 87186; 93005; 94760; 96374; 96375; 99285; J0692; J1170; J2185; J2405; J7030; Q9967